=== PATIENT | male | born 1965 | race Caucasian/White ===

== ENCOUNTER 2018-07-19 09:59 | Emergency (ER) | payer OTHER ==
[~2018-07-19] VITALS: Ht 175.3 cm; Wt 62.5 kg
[2018-07-19 10:30] LABS: MEAN CORPUSCULAR HGB CONC 34.8 g/dL (33.2-36.2); MEAN CORPUSCULAR VOLUME 92.1 fL (81-97); MEAN PLATELET VOLUME 7.9 fL (7.4-10.4); PLATELET COUNT 440 x10^3/uL (130-400); RED BLOOD COUNT 4.47 x10^6/uL (4.38-5.82); RED CELL DISTRIBUTION WIDTH 13.7 % (9.4-14.8)
[2018-07-19] MEDS ORDERED: KETOROLAC 30 MG/1 ML IVPush ONE (10:30)
[2018-07-19] MEDS ORDERED: MORPHINE SULFATE 4 MG/ML, 1ML IVPush ONE (10:30)
[2018-07-19 10:42] LABS: ANION GAP 6 mmol/L (5-15); CALCIUM 8.5 mg/dL (8.5-10.1); CHLORIDE 103 mmol/L (98-107); CREATININE 0.83 mg/dL (0.7-1.3)
[2018-07-19 10:46] LABS: MD YES
[2018-07-19 10:47] LABS: BAND#(MANUAL) 1.74 x10^3/uL; BANDS%(MANUAL) 8 % (0-7); BASOS#(MANUAL) 0.22 x10^3/uL (0-0.1); BASOS% (MANUAL) 1 % (0-1); LYMPHS% (MANUAL) 6 % (22-44); MONOS#(MANUAL) 0.65 x10^3/uL (0.3-2.7); MONOS% (MANUAL) 3 % (2-9); SEG#(MANUAL) 17.79 x10^3/uL (1.8-6.8); SEGS% (MANUAL) 82 % (42-75)
[2018-07-19 10:48] LABS: <PLATELET ESTIMATE> ADEQUATE; <PLT MORPHOLOGY> NORMAL PLT MORPH; <RBC MORPHOLOGY> NORMAL
[2018-07-19 10:52] LABS: MICROSCOPIC AUTO
[2018-07-19 10:53] LABS: CULTURE INDICATED? YES
[2018-07-19] MEDS ORDERED: KETOROLAC 30 MG/1 ML ONE (10:56)
[2018-07-19] MEDS ORDERED: MORPHINE SULFATE 4 MG/ML, 1ML ONE (10:56)
[2018-07-19 11:00] VITALS: BP 129/81
[2018-07-19] MEDS ORDERED: CEFTRIAXONE PMX 1GM/50ML 50 ML IV ONE (11:30)
[2018-07-19] MEDS ORDERED: CEFTRIAXONE PMX 1GM/50ML 50 ML ONE (11:37)
== END 2018-07-19 12:21 | disposition home or self-care (01) ==
LOC: ED 12:15
DX: N45.1 Epididymitis (principal); N30.00 Acute cystitis without hematuria
CPT/HCPCS: 36415; 76870; 80048; 81001; 85025; 87077; 87086; 87186; 87491; 87591; 93975; 96365; 96375; 99285; J0696; J1885

== ENCOUNTER 2019-02-16 06:21 | Emergency (ER) | payer MEDICAID ==
[~2019-02-16] VITALS: Ht 177.8 cm; Wt 66.0 kg
[2019-02-16 06:25] VITALS: BP 133/65
[2019-02-16] MEDS ORDERED: PROPARACAINE OPHTH 0.5%, 15ML EACHEYE ONE (06:30)
[2019-02-16] MEDS ORDERED: FLUORESCEIN OPHTHALMIC 1 MG STRIP EACHEYE ONE (06:30)
[2019-02-16] MEDS ORDERED: PROPARACAINE OPHTH 0.5%, 15ML ONE (06:32)
[2019-02-16] MEDS ORDERED: FLUORESCEIN OPHTHALMIC 1 MG STRIP ONE (06:34)
--- NOTE | 2019-02-16 06:38 | NUR ---
PT PRESENTED WITH C/O BURNING EYES, PTS EYES ARE PINK AND IRRITATED, PT WAS LANDSCAPING YESTERDAY WITH OUT EYE PROTECTION. PA AT BEDSIDE FOR EVAL
--- NOTE | 2019-02-16 06:49 | NUR ---
RECEIVED BEDSIDE REPORT FROM YOSEF WEBB.
--- NOTE | 2019-02-16 07:02 | NUR ---
pt resting in chair. no acute distress noted. NO NEEDS REQUESTED AT THIS TIME.
--- NOTE | 2019-02-16 07:26 | NUR ---
Patient/Caregiver given discharge instructions and they have confirmed that they understand the instructions. Patient ambulatory with steady gait. PT LEFT WITH ALL PERSONAL BELONGINGS
== END 2019-02-16 07:28 | disposition home or self-care (01) ==
LOC: ED 06:49
DX: S05.02XA Injury of conjunctiva and corneal abrasion without foreign body, left eye, initial encounter (principal); S05.01XA Injury of conjunctiva and corneal abrasion without foreign body, right eye, initial encounter; H10.33 Unspecified acute conjunctivitis, bilateral; X58.XXXA Exposure to other specified factors, initial encounter; Y93.89 Activity, other specified; Y92.89 Other specified places as the place of occurrence of the external cause; Y99.8 Other external cause status
CPT/HCPCS: 99283

== ENCOUNTER 2021-03-12 09:46 | Emergency (ER) | payer MEDICAID ==
[~2021-03-12] VITALS: Ht 177.8 cm; Wt 65.5 kg
--- NOTE | 2021-03-12 09:48 | NUR ---
DATA CONVERSION DEVELOPER: [email or web address]
--- NOTE | 2021-03-12 09:52 | NUR ---
SCOUT PROFESSIONAL SPORTS: [id number]
[2021-03-12 09:53] VITALS: BP 140/85
--- NOTE | 2021-03-12 10:04 | NUR ---
PATIENT WALKED BACK FROM TRIAGE WITH CHIEF C/O LEFT HAND "NOT WORKING." PATIENT REPORTS LEFT HAND PAIN SINCE YESTERDAY EVENING, NO SWELLING, DENIES INJURY OR TRAUMA. DENIES NUMBNESS/TINGLING. LUIS AN, CALL LIGHT WITHIN REACH.
--- NOTE | 2021-03-12 10:08 | NUR ---
ERMD AT BEDSIDE FOR EVALUATION.
--- NOTE | 2021-03-12 10:43 | NUR ---
PATIENT LEFT WITHOUT DISCHARGE PAPERWORK.
== END 2021-03-12 10:43 | disposition home or self-care (01) ==
LOC: ED 10:37
DX: M79.642 Pain in left hand (principal); F17.200 Nicotine dependence, unspecified, uncomplicated
CPT/HCPCS: 99281